=== PATIENT | male | born 1995 | race Caucasian/White ===

== ENCOUNTER 2017-04-15 23:30 | Emergency (ER) | payer OTHER ==
[~2017-04-15] VITALS: Ht 177.8 cm; Wt 68.5 kg
[2017-04-15 23:34] VITALS: BP 122/65; PULSE 106; RESP 14; TEMP 98.6; O2SAT 98
[2017-04-15 23:41] VITALS: BP 122/65; PULSE 106; RESP 16; TEMP 98.6; O2SAT 99
[2017-04-15] MEDS ORDERED: SODIUM CHLOR 0.9% 1000 ML INJ 1,000 ML IV SCH (23:56)
[2017-04-16] MEDS ORDERED: SODIUM CHLORIDE 0.9% FLUSH 10 ML FLUSH IV FLUSH PRN
[2017-04-16] MEDS ORDERED: SODIUM CHLORIDE 0.9% FLUSH 10 ML FLUSH IVF PRN
[2017-04-16 00:18] LABS: AUTOMATED NEUTROPHIL # 6.4 TH/MM3 (1.8-7.7); BASOPHIL # 0.2 TH/MM3 (0-0.2); BASOPHIL % 2.1 % (0.0-2.0); EOSINOPHIL % 0.3 % (0.0-4.0); HEMATOCRIT 43.7 % (39.0-51.0); LYMPHOCYTE # 0.5 TH/MM3 (1.0-4.8); MEAN CELL VOLUME 85.9 FL (80.0-100.0); MEAN CORPUSCULAR HEMOGLOBIN 27.8 PG (27.0-34.0); MEAN CORPUSCULAR HGB CONC 32.3 % (32.0-36.0); MONO % 7.8 % (0.0-8.0); NEUT % 82.8 % (16.0-70.0); PLATELET COUNT 200 TH/MM3 (150-450); RED BLOOD COUNT 5.08 MIL/MM3 (4.50-5.90); RED CELL DISTRIBUTION WIDTH 12.2 % (11.6-17.2); WHITE BLOOD COUNT 7.7 TH/MM3 (4.0-11.0)
[2017-04-16 00:19] VITALS: O2SAT 98
[2017-04-16 00:20] LABS: HEMO FLAGS DIFF FINAL
[2017-04-16 00:27] LABS: CHLORIDE 103 MEQ/L (98-107); POTASSIUM 3.5 MEQ/L (3.5-5.1); SODIUM (NA) 136 MEQ/L (136-145)
[2017-04-16 00:31] LABS: ANION GAP 8 MEQ/L (5-15); BICARBONATE 24.6 MEQ/L (21.0-32.0); BLOOD UREA NITROGEN 14 MG/DL (7-18)
[2017-04-16 00:34] LABS: ALT (GPT) 24 U/L (9-52); AST (GOT) 20 U/L (15-39); GLOMERULAR FILTRATION RATE 95 ML/MIN (>89)
[2017-04-16 00:36] LABS: TOTAL BILIRUBIN ADULT 0.5 MG/DL (0.2-1.0)
[2017-04-16 00:37] LABS: ALKALINE PHOSPHATASE 96 U/L (45-117)
--- NOTE | 2017-04-16 00:37 | RADRPT ---
EXAM DATE/TIME: 04/16/2017 00:15 [place] COMPARISON: No previous studies available for comparison. INDICATIONS : Fever. MEDICAL HISTORY : None. SURGICAL HISTORY : None. ENCOUNTER: Initial ACUITY: 1 day PAIN SCORE: 0/10 LOCATION: Bilateral chest FINDINGS: PA and lateral views of the chest demonstrate the lungs to be symmetrically aerated without evidence of mass, infiltrate or effusion. The cardiomediastinal contours are unremarkable. Osseous structure s are intact. CONCLUSION: No acute cardiopulmonary disease. Masoud Haile MD on April 16, 2017 at 0:36 Board Certified Radiologist. This report was verified electronically.
[2017-04-16 00:54] VITALS: BP 140/60; PULSE 102; RESP 16; TEMP 98.9; O2SAT 100
--- NOTE | 2017-04-16 01:29 | PD ---
HPI Chief Complaint: Fever Time Seen by Provider: 23:38 Travel History International Travel<30 days: No Contact w/Intl Traveler<30days: No Traveled to known affect area: No History of Present Illness HPI patient is a 22-year-old male presents emergency department for evaluation of fever headache and stiff neck. Patient is a college student and rhythm, does not maggie. No current outbreaks or known of any meningococcal or meningitis at college. Patient states his symptoms started several hours ago today with some mild neck pain preceding and neck stiffness and headache, he also states he felt sweaty and chills and his roommate take his temperature even after Tylenol he is running at 102 temperature. Has denied any rash, denies any cough congestion runny nose. Or, otherwise healthy takes no medications not documented history. States symptoms are moderate, context as above, radiation as above, progression as above PFSH Past Medical History Medical History: Denies Significant Hx Diminished Hearing: No Tetanus Vaccination: < 5 Years Influenza Vaccination: No Past Surgical History Surgical History: No Previous Surgery Social History Alcohol Use: No Tobacco Use: No Substance Use: No Allergies-Medications (Allergen,Severity, Reaction): Coded Allergies: No Known Allergies (Unverified , 04/15/17) Review of Systems Except as stated in HPI: all other systems reviewed are Neg Physical Exam Narrative GENERAL: Well-developed well-nourished no obvious distress SKIN: Focused skin assessment warm/dry. No rash, no loss his nose no splinter hemorrhages. HEAD: Atraumatic. Normocephalic. EYES: Pupils equal and round. No scleral icterus. No injection or drainage. ENT: No nasal bleeding or discharge. Mucous membranes pink and moist. TMs clear bilaterally, oropharynx clear moist. NECK: Trachea midline. No JVD. Supple, Kernig's and Brudzinski signs negative, able to range his neck with some tenderness. CARDIOVASCULAR: Regular rate and rhythm. No murmur appreciated. RESPIRATORY: No accessory muscle use. Clear to auscultation. Breath sounds equal bilaterally. GASTROINTESTINAL: Abdomen soft, non-tender, nondistended. Hepatic and splenic margins not palpable. MUSCULOSKELETAL: No obvious deformities. No clubbing. No cyanosis. No edema. NEUROLOGICAL: Awake and alert. No obvious cranial nerve deficits. Motor grossly within normal limits. Normal speech. PSYCHIATRIC: Appropriate mood and affect; insight and judgment normal. Data Data Last Documented VS Vital Signs Date Time Temp Pulse Resp B/P (MAP) Pulse Ox O2 Delivery O2 Flow Rate FiO2 04/16/17 02:43 98.5 95 18 150/70 (96) 99 04/16/17 00:54 Room Air Orders Orders Complete Blood Count With Diff (04/15/17 23:56) Comprehensive Metabolic Panel (04/15/17 23:56) Influenzae A/B Antigen (04/15/17 23:56) Chest, Pa & Lat (04/15/17 23:56) Sodium Chloride 0.9% Flush (Ns Flush) (04/16/17 00:00) Iv Access Insert/Monitor (04/15/17 23:56) Ecg Monitoring (04/15/17 23:56) Oximetry (04/15/17 23:56) Sodium Chlor 0.9% 1000 Ml Inj (Ns 1000 M (04/15/17 23:56) Sodium Chloride 0.9% Flush (Ns Flush) (04/16/17 00:00) Group A Rapid Strep Screen (04/16/17 00:16) Strep Culture (Group A) (04/16/17 00:15) Csf Cell Count + Differential (04/16/17 00:37) Glucose, Csf (04/16/17 00:37) Total Protein, Csf (04/16/17 00:37) Csf Culture And Gram Stain (04/16/17 00:37) Urinalysis - C+S If Indicated (04/16/17 01:00) Ed Discharge Order (04/16/17 02:20) Labs Laboratory Tests Test 04/16/17 00:06 04/16/17 01:13 White Blood Count 7.7 TH/MM3 Red Blood Count 5.08 MIL/MM3 Hemoglobin 14.1 GM/DL Hematocrit 43.7 % Mean Corpuscular Volume 85.9 FL Mean Corpuscular Hemoglobin 27.8 PG Mean Corpuscular Hemoglobin Concent 32.3 % Red Cell Distribution Width 12.2 % Platelet Count 200 TH/MM3 Mean Platelet Volume 7.6 FL Neutrophils (%) (Auto) 82.8 % Lymphocytes (%) (Auto) 7.0 % Monocytes (%) (Auto) 7.8 % Eosinophils (%) (Auto) 0.3 % Basophils (%) (Auto) 2.1 % Neutrophils # (Auto) 6.4 TH/MM3 Lymphocytes # (Auto) 0.5 TH/MM3 Monocytes # (Auto) 0.6 TH/MM3 Eosinophils # (Auto) 0.0 TH/MM3 Basophils # (Auto) 0.2 TH/MM3 CBC Comment DIFF FINAL Differential Comment Blood Urea Nitrogen 14 MG/DL Creatinine 1.00 MG/DL Random Glucose 121 MG/DL Total Protein 7.6 GM/DL Albumin 4.2 GM/DL Calcium Level 8.5 MG/DL Alkaline Phosphatase 96 U/L Aspartate Amino Transf (AST/SGOT) 20 U/L Alanine Aminotransferase (ALT/SGPT) 24 U/L Total Bilirubin 0.5 MG/DL Sodium Level 136 MEQ/L Potassium Level 3.5 MEQ/L Chloride Level 103 MEQ/L Carbon Dioxide Level 24.6 MEQ/L Anion Gap 8 MEQ/L Estimat Glomerular Filtration Rate 95 ML/MIN Urine Color STRAW Urine Turbidity CLEAR Urine pH 5.5 Urine Specific Arthur 1.004 Urine Protein NEG mg/dL Urine Glucose (UA) NEG mg/dL Urine Ketones NEG mg/dL Urine Occult Blood NEG Urine Nitrite NEG Urine Bilirubin NEG Urine Leukocyte Esterase NEG Urine Squamous Epithelial Cells 0-5 /hpf Microscopic Urinalysis Comment CULT NOT INDICATED CSF Volume (Tube 1) 0.9 ML CSF Supernatant Color (tube 1) CLEAR CSF Gross Blood (Tube 1) 0 CSF Volume (Tube 2) 1.4 ML CSF Supernatant Color (tube 2) CLEAR CSF Gross Blood (Tube 2) 0 CSF Volume (Tube 3) 1.0 ML CSF Supernatant Color (tube 3) CLEAR CSF Gross Blood (Tube 3) 0 CSF Volume (Tube 4) 1.5 ML CSF Supernatant Color (tube 4) CLEAR CSF Gross Blood (Tube 4) 0 CSF WBC (Tube 4) 0 /MM3 CSF RBC (Tube 4) 1 /MM3 CSF Neutrophils 0 % CSF Lymphocytes 0 % CSF Monocytes 0 % CSF Glucose 60 MG/DL CSF Total Protein 36.6 MG/DL MDM Medical Decision Making Medical Screen Exam Complete: Yes Emergency Medical Condition: Yes Differential Diagnosis Viral illness, febrile illness, meningitis seems unlikely, meningococcemia seems highly unlikely, sepsis seems highly unlikely. Strep, pneumonia, influenza. 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 No nuchal rigidity, no other source of fever is yet been identified, therefore I recommended that he have a spinal tap for exclusion, after discussion of risks benefits competitions and alternatives he is agreeable. He signed a formal consent and all of his questions were answered, spinal tap shows no evidence for infection. Glucose and protein still pending as well as his culture and Gram stain, however he appears well and nontoxic and is stable for discharge. Procedures Procedure Narrative LUMBAR PUNCTURE: The patient was placed in the left lateral decubitus position. The lumbar area of the back was prepped with Betadine and sterilely draped. The L3 -- L4 interspace was infiltrated with 1% lidocaine plain. Number 20 gauge LP needle was placed in the interspace. Opening pressure deferred. Number 4 milliliters of clear CSF were obtained. Patient tolerated procedure well. Diagnosis Primary Impression: Viral illness Additional Impression: Fever Patient Instructions: Acute Headache (DC), Fever in Adults (ED), General Instructions, Lumbar Puncture (DC) Disposition: 01 DISCHARGE HOME Condition: Stable Jemal Onofre MD Apr 16, 2017 01:29
[2017-04-16 01:33] LABS: BLOOD, URINE NEG (NEG); GLUCOSE,URINE NEG (NEG); KETONE, URINE NEG (NEG); NITRITE,URINE NEG (NEG); PH, URINE 5.5 (5.0-8.5)
[2017-04-16 02:14] LABS: GROSS BLOOD TUBE #1 0 (0); GROSS BLOOD TUBE #2 0 (0); GROSS BLOOD TUBE #3 0 (0); SUPERNATE COLOR TUBE #1 CLEAR (CLEAR); SUPERNATE COLOR TUBE #2 CLEAR (CLEAR); SUPERNATE COLOR TUBE #3 CLEAR (CLEAR); VOLUME TUBE # 1 0.9 ML; VOLUME TUBE # 2 1.4 ML; VOLUME TUBE # 4 1.5 ML
[2017-04-16 02:15] LABS: CSF LYMPHOCYTES 0 %; CSF MONOCYTES 0 %; CSF NEUTROPHILS 0 %; GROSS BLOOD TUBE #4 0 (0); SUPERNATE COLOR TUBE #4 CLEAR (CLEAR); WBC TUBE #4 0 /MM3 (0-10)
[2017-04-16 02:30] LABS: URINE COLOR STRAW (YELLW/STRAW)
[2017-04-16 02:31] LABS: COMMENT (UR) CULT NOT INDICATED; CULTURE IF INDICATED CULT NOT INDICATED; SQUAMOUS EPITHELIAL CELL URINE 0-5 /hpf (0-5)
[2017-04-16 02:43] VITALS: BP 150/70; TEMP 98.5
== END 2017-04-16 02:45 | disposition home or self-care (01) ==
LOC: PHED 23:30
DX: B34.9 Viral infection, unspecified (principal)
CPT/HCPCS: 62270; 71020; 80053; 81001; 82945; 84157; 85025; 87070; 87081; 87205; 87804; 87880; 89051; 96360; 99284; J7030